=== PATIENT | female | born 1975 | race American Indian/Alaskan Native ===

== ENCOUNTER 2017-01-25 09:38 | Emergency (ER) | payer MEDICAID ==
[2017-01-25 09:48] VITALS: BP 124/79; PULSE 62; RESP 19; TEMP 98.4; O2SAT 99
--- NOTE | 2017-01-25 10:59 | ED PDOC ---
HPI: Eye Injury/Pain Time Seen by Provider: 01/25/17 10:25 Chief Complaint (Nursing): Eye Problem History Per: Patient History/Exam Limitations: no limitations Onset/Duration Of Symptoms: Days (3), Gradual, Worse Since (today) Current Symptoms Are (Timing): Still Present Severity: Moderate Quality: Sharp Wears Contact Lens?: Yes Associated Symptoms: Pain. denies: Decreased Vision, Swelling, FB Sensation, Itching, Discharge From Eye Additional History Per: Patient Additional Complaint(s): pt c/o right eye pain, redness, tearing and discharge for 3 days after sleeping with her contact lenses on. Past Medical History Reviewed: Historical Data, Nursing Documentation, Vital Signs Vital Signs: Last Vital Signs Temp 98.4 F 01/25/17 09:46 Pulse 62 01/25/17 09:46 Resp 19 01/25/17 09:46 BP 124/79 01/25/17 09:46 Pulse Ox 99 01/25/17 09:46 - Medical History PMH: No Chronic Diseases - Family History Family History: States: No Known Family Hx - Living Arrangements Living Arrangements: With Family - Social History Current smoker - smoking cessation education provided: No - Allergies Allergies/Adverse Reactions: Allergies Allergy/AdvReac Type Severity Reaction Status Date / Time Sulfa (Sulfonamide Allergy RASH Verified 01/25/17 09:56 Antibiotics) Review of Systems ROS Statement: Except As Marked, All Systems Reviewed And Found Negative Constitutional: Negative for: Fever, Chills Eyes: Positive for: Pain, Redness. Negative for: Vision Change, Conjunctivae Inflammation, Eyelid Inflammation Physical Exam - Reviewed Nursing Documentation Reviewed: Yes Vital Signs Reviewed: Yes - Physical Exam Appears: Positive for: Uncomfortable Head Exam: Positive for: ATRAUMATIC, NORMAL INSPECTION, NORMOCEPHALIC Eye Exam: Positive for: EOMI, PERRL, Conjunctival injection, Other (fluroscein revelas two small corneal ulcer mild keratitis). Negative for: Periorbital swelling, Periorbital tenderness Neck: Positive for: Normal, Painless ROM, Supple Neurologic/Psych: Positive for: Alert, odd piece checker II-XII, Oriented. Negative for: Motor/Sensory Deficits - ECG ECG Rhythm: Positive for: Premature Ventricular Contraction O2 Sat by Pulse Oximetry: 99 Pulse Ox Interpretation: Normal - Progress ED Course And Treament: discussed with Dr guralnd and will see immediate in office pt agree's with plan. Re-evaluation Time: 11:02 Condition: Improved Disposition - Clinical Impression Clinical Impression: Bacterial keratitis, Corneal ulcer of right eye - Patient ED Disposition Is Patient to be Admitted: No Counseled Patient/Family Regarding: Studies Performed, Diagnosis, Need For Followup - Disposition Referrals: Sean Quintero MD [Staff Provider] - (immediately) Disposition: Routine/Home Disposition Time: 11:01 Condition: GOOD Instructions: Corneal Ulcer (ED)
== END 2017-01-25 11:25 | disposition home or self-care (01) ==
LOC: H.ER 09:38
DX: H16.9 Unspecified keratitis (principal); H16.011 Central corneal ulcer, right eye